=== PATIENT | female | born 1995 | race African-American/Black ===

== ENCOUNTER → 2016-09-26 | Outpatient (CLI) | payer OTHER ==
--- NOTE | 2016-09-26 21:44 | REP ---
Clinical: Pain . Technique: AP, lateral, bilateral oblique views right ankle . Findings: No acute fracture or dislocation. Skeletal structures and joint spaces are intact and normal. Ankle mortise appears stable. No subcutaneous emphysema or radiodense foreign body. Impression: Normal right ankle radiograph series. No acute fracture or dislocation. Signed by Chaim Banerjee MD 09/26/2016 09:35 P
--- NOTE | 2016-09-26 21:48 | REP ---
Clinical: Pain. Technique: AP, lateral, bilateral oblique views right foot . Findings: The osseous structures and joint spaces are intact and normal. There is no evidence for acute fracture or dislocation. Surrounding soft tissues are unremarkable. No subcutaneous emphysema or radiodense foreign body. Impression: No acute fracture or dislocation. Signed by Chaim Banerjee MD 09/26/2016 09:39 P
== END ==
LOC: M WUC 18:06
PROVIDERS: ATTEND Physician Assistant
DX: M25.571 Pain in right ankle and joints of right foot (principal)